=== PATIENT | male | born 1970 | race Caucasian/White ===

== ENCOUNTER 2022-07-01 18:55 | Emergency (ER) | payer BC ==
[~2022-07-01] VITALS: Ht 177.8 cm; Wt 89.8 kg
[2022-07-01] MEDS ORDERED: OCUFLOX510 LEFTEYE (21:14)
== END 2022-07-01 21:15 | disposition home or self-care (01) ==
LOC: ER 18:55
DX: T15.02XA Foreign body in cornea, left eye, initial encounter (principal); W22.8XXA Striking against or struck by other objects, initial encounter
CPT/HCPCS: 65205; 99283-25; A9270